=== PATIENT | male | born 1995 | race Caucasian/White ===

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

== ENCOUNTER 2017-01-26 13:20 | Emergency (ER) | payer OTHER ==
[~2017-01-26] VITALS: Ht 167.6 cm; Wt 64.4 kg
[~2017-01-26 13:20] MED LIST changes: +AZIT250T3 PO; -BENZ100 PO; +IBUP-232 PO; -MEDR4PAK3 PO; -ROBIACUDC PO; -ZITH250T PO
[2017-01-26 13:30] VITALS: BP 122/62; PULSE 130; RESP 18; TEMP 99.8; O2SAT 98
[2017-01-26] MEDS ORDERED: ACETAMINOPHEN 325 MG TAB PO ONE (14:00)
--- NOTE | 2017-01-26 14:40 | PD ---
HPI Chief Complaint: ENT Complaint Time Seen by Provider: 14:10 Travel History International Travel<30 days: No Contact w/Intl Traveler<30days: No Traveled to known affect area: No History of Present Illness HPI 21-year-old male presents to the emergency room for evaluation of sore throat, fever, and weakness for the past 2 days. Maximum temperature at home was 101.8 yesterday. Patient took Advil yesterday but nothing today. States sore throat is severe and it keeps worsening over time. He has had strep in the past and states this feels as bad as that did. He denies cough and congestion. States he feels dehydrated because he cannot drink because of a sore throat. Up-to-date on vaccinations. No chronic medical conditions or daily medications. PFSH Past Medical History Diminished Hearing: No Integumentary: Yes (ECZEMA, FOOD ALLERGIES) Immunizations Current: Yes Tetanus Vaccination: < 5 Years Influenza Vaccination: Yes Social History Alcohol Use: Yes (Occ.) Tobacco Use: No Substance Use: No Allergies-Medications (Allergen,Severity, Reaction): Coded Allergies: iodine (Unverified Allergy, Severe, anaphylaxis, 01/26/17) peanut (Unverified Allergy, Severe, "CARDIAC ARREST", 01/26/17) potassium iodide (Unverified Allergy, Severe, anaphylaxis, 01/26/17) povidone-iodine (Unverified Allergy, Severe, anaphylaxis, 01/26/17) shellfish derived (Unverified Allergy, Severe, "CARDIAC ARREST", 01/26/17) sodium iodide (Unverified Allergy, Severe, anaphylaxis, 01/26/17) sodium iodide (Unverified Allergy, Severe, anaphylaxis, 01/26/17) Sulfa (Sulfonamide Antibiotics) (Unverified Allergy, Mild, HIVES, 01/26/17) penicillin G (Unverified Allergy, Mild, 01/26/17) Reported Meds & Prescriptions Reported Meds & Active Scripts Active Review of Systems Except as stated in HPI: all other systems reviewed are Neg Physical Exam Narrative GENERAL: Well-nourished, well-developed male in no acute distress. Afebrile. Ambulatory. SKIN: Focused skin assessment warm/dry. HEAD: Normocephalic. EYES: No scleral icterus. No injection or drainage. NECK: Supple, trachea midline. No JVD or lymphadenopathy. ENT: Mucosa pink and moist. Extreme erythema without significant edema or exudates. No uvular edema. No uvular, palatal, or tonsillar deviation. Airway patent. Nasal turbinates appear normal without nasal blood, purulent drainage or septal hematoma. EARS: Bilateral pinnae and external canals appear within normal limits. Bilateral tympanic membranes without erythema, dullness or perforation. CARDIOVASCULAR: Regular rate and rhythm without murmurs, gallops, or rubs. RESPIRATORY: Breath sounds equal bilaterally. No accessory muscle use. No crackles, rales, wheezes, or rhonchi. Data Data Last Documented VS Vital Signs Date Time Temp Pulse Resp B/P (MAP) Pulse Ox O2 Delivery O2 Flow Rate FiO2 01/26/17 13:30 99.8 130 18 122/62 (82) 98 Orders Orders Group A Rapid Strep Screen (01/26/17 13:56) Acetaminophen (Tylenol) (01/26/17 14:00) Oral Rehydration (01/26/17 13:56) Influenzae A/B Antigen (01/26/17 13:56) MDM Medical Decision Making Medical Screen Exam Complete: Yes Emergency Medical Condition: Yes Medical Record Reviewed: Yes Differential Diagnosis Pharyngitis, strep throat, influenza, pneumonia Narrative Course 21-year-old male presents to the emergency room for evaluation of sore throat, fever, body aches, and weakness for the past 2 days. No cough or congestion. Maximum temperature was 101.8 yesterday. Temperature is 99.8 degrees today but patient has not taken anything. He is mildly tachycardic but after oral rehydration, his heart rate came down to 100. He is laughing, interacting appropriate, smiling. Does not appear toxic. Physical exam reveals extreme erythema of the pharynx without edema or exudates. Patient has associated halitosis. Rapid strep and influenza are negative. Patient will be treated empirically with antibiotics for streptococcal pharyngitis given history and physical exam. Rapid strep is likely poor sample. Discharged with amoxicillin and mouthwash and told to follow-up with a primary care physician or return for worsening symptoms. He understands and agrees to plan. Diagnosis Primary Impression: Pharyngitis Qualified Codes: J02.0 - Streptococcal pharyngitis Referrals: Primary Care Physician Additional Instructions: Rest and drink plenty of fluids. Magic mouthwash as directed, as needed for pain. Penicillin as directed, until gone. Take ibuprofen with food as directed, as needed for pain. Follow-up with a primary care physician. Return to the emergency room for worsening symptoms. Med/Other Pt SpecificInfo: Prescription(s) given Disposition: 01 DISCHARGE HOME Condition: Stable Mary Beth Waite Jan 26, 2017 14:40
[2017-01-26] MEDS ORDERED: CEPH-460 PO (14:43)
[2017-01-26] MEDS ORDERED: MAGICPED SWISH-SWAL (14:43)
[2017-01-26 14:44] VITALS: PULSE 98; RESP 16; O2SAT 98
== END 2017-01-26 14:50 | disposition home or self-care (01) ==
LOC: PHEFT 13:20
DX: J02.0 Streptococcal pharyngitis (principal); R50.9 Fever, unspecified; R53.1 Weakness; M79.1 Myalgia; Z87.2 Personal history of diseases of the skin and subcutaneous tissue
CPT/HCPCS: 87081; 87804; 87880; 99284

== ENCOUNTER 2017-04-24 09:00 | Emergency (ER) | payer OTHER ==
[~2017-04-24] VITALS: Ht 167.6 cm; Wt 62.7 kg
[~2017-04-24 09:00] MED LIST changes: -AZIT250T3 PO; +CEPH-460 PO; -IBUP-232 PO; +MAGICPED SWISH-SWAL
[2017-04-24 09:07] VITALS: BP 127/60; PULSE 123; RESP 16; TEMP 98.4; O2SAT 97
[2017-04-24] MEDS ORDERED: SODIUM CHLOR 0.9% 1000 ML INJ 1,000 ML IV SCH (11:09)
--- NOTE | 2017-04-24 11:12 | PD ---
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 Otherwise healthy, denies any abdominal pain denies any heavy episodes of exertion such as drills. States symptoms are gradually getting worse, he did have a flu shot this year. States he had temperature at home of 100.0 prior to arrival. Denies any urinary symptoms diarrhea constipation blood in the stool. PFSH Past Medical History Diminished Hearing: No Integumentary: Yes (ECZEMA, FOOD ALLERGIES) Immunizations Current: Yes ?: Not Past Surgical History Oral Surgery: Yes (wisdom teeth) Social History Alcohol Use: Yes (Occ.) Tobacco Use: No Substance Use: No Allergies-Medications (Allergen,Severity, Reaction): Coded Allergies: iodine (Unverified Allergy, Severe, anaphylaxis, 04/24/17) peanut (Unverified Allergy, Severe, "CARDIAC ARREST", 04/24/17) potassium iodide (Unverified Allergy, Severe, anaphylaxis, 04/24/17) povidone-iodine (Unverified Allergy, Severe, anaphylaxis, 04/24/17) shellfish derived (Unverified Allergy, Severe, "CARDIAC ARREST", 04/24/17) sodium iodide (Unverified Allergy, Severe, anaphylaxis, 04/24/17) sodium iodide (Unverified Allergy, Severe, anaphylaxis, 04/24/17) Sulfa (Sulfonamide Antibiotics) (Unverified Allergy, Mild, HIVES, 04/24/17) penicillin G (Unverified Allergy, Mild, 04/24/17) Reported Meds & Prescriptions Reported Meds & Active Scripts Active Review of Systems Except as stated in HPI: all other systems reviewed are Neg Physical Exam Narrative GENERAL: Well-developed well-nourished no obvious distress SKIN: Focused skin assessment warm/dry. No rash HEAD: Atraumatic. Normocephalic. EYES: Pupils equal and round. No scleral icterus. No injection or drainage. ENT: No nasal bleeding or discharge. Mucous membranes pink and moist. Oropharynx clear moist, TMs clear bilaterally NECK: Trachea midline. No JVD. CARDIOVASCULAR: Regular rhythm with minimal tachycardia. No murmur appreciated. 2+ bilateral equal pulses in all 4 extremity RESPIRATORY: No accessory muscle use. Clear to auscultation. Breath sounds equal bilaterally. GASTROINTESTINAL: Abdomen soft, non-tender, nondistended. Hepatic and splenic margins not palpable. MUSCULOSKELETAL: No obvious deformities. No clubbing. No cyanosis. No edema. NEUROLOGICAL: Awake and alert. No obvious cranial nerve deficits. Motor grossly within normal limits. Normal speech. PSYCHIATRIC: Appropriate mood and affect; insight and judgment normal. Data Data Last Documented VS Vital Signs Date Time Temp Pulse Resp B/P (MAP) Pulse Ox O2 Delivery O2 Flow Rate FiO2 04/24/17 11:55 98 04/24/17 09:07 98.4 123 16 127/60 (82) Orders Orders Complete Blood Count With Diff (04/24/17 11:09) Comprehensive Metabolic Panel (04/24/17 11:09) Urinalysis - C+S If Indicated (04/24/17 11:09) Iv Access Insert/Monitor (04/24/17 11:09) Ecg Monitoring (04/24/17 11:09) Oximetry (04/24/17 11:09) Ondansetron Inj (Zofran Inj) (04/24/17 11:15) Sodium Chlor 0.9% 1000 Ml Inj (Ns 1000 M (04/24/17 11:09) Sodium Chloride 0.9% Flush (Ns Flush) (04/24/17 11:15) Influenzae A/B Antigen (04/24/17 11:09) Chest, Pa & Lat (04/24/17 ) Ed Discharge Order (04/24/17 12:22) Labs Laboratory Tests Test 04/24/17 11:25 White Blood Count 12.9 TH/MM3 Red Blood Count 4.76 MIL/MM3 Hemoglobin 14.7 GM/DL Hematocrit 42.7 % Mean Corpuscular Volume 89.6 FL Mean Corpuscular Hemoglobin 30.8 PG Mean Corpuscular Hemoglobin Concent 34.4 % Red Cell Distribution Width 11.4 % Platelet Count 191 TH/MM3 Mean Platelet Volume 8.6 FL Neutrophils (%) (Auto) 86.2 % Lymphocytes (%) (Auto) 7.0 % Monocytes (%) (Auto) 6.5 % Eosinophils (%) (Auto) 0.1 % Basophils (%) (Auto) 0.2 % Neutrophils # (Auto) 11.2 TH/MM3 Lymphocytes # (Auto) 0.9 TH/MM3 Monocytes # (Auto) 0.8 TH/MM3 Eosinophils # (Auto) 0.0 TH/MM3 Basophils # (Auto) 0.0 TH/MM3 CBC Comment DIFF FINAL Differential Comment Urine Collection Type CLEAN CATCH Urine Color YELLOW Urine Turbidity CLEAR Urine pH 5.5 Urine Specific [place] 1.032 Urine Protein TRACE mg/dL Urine Glucose (UA) NEG mg/dL Urine Ketones 15 mg/dL Urine Occult Blood TRACE Urine Nitrite NEG Urine Bilirubin NEG Urine Leukocyte Esterase NEG Urine RBC INNUM /hpf Urine Squamous Epithelial Cells 0-5 /hpf Urine Mucus MOD /lpf Microscopic Urinalysis Comment CULT NOT INDICATED Urine Collection Time 11:25 Blood Urea Nitrogen 14 MG/DL Creatinine 1.10 MG/DL Random Glucose 88 MG/DL Total Protein 7.6 GM/DL Albumin 4.0 GM/DL Calcium Level 8.7 MG/DL Alkaline Phosphatase 54 U/L Aspartate Amino Transf (AST/SGOT) 14 U/L Alanine Aminotransferase (ALT/SGPT) 22 U/L Total Bilirubin 0.9 MG/DL Sodium Level 138 MEQ/L Potassium Level 3.6 MEQ/L Chloride Level 104 MEQ/L Carbon Dioxide Level 27.0 MEQ/L Anion Gap 7 MEQ/L Estimat Glomerular Filtration Rate 85 ML/MIN MDM Medical Decision Making Medical Screen Exam Complete: Yes Emergency Medical Condition: Yes Differential Diagnosis Rhabdomyolysis, dehydration, flu, viral illness, pneumonia Narrative Course Patient roomed emergency department, given fluids, basic labs are reassuring. Chest x-ray negative. Discussed with him likely diagnosis of viral illness, has an incidental finding of hematuria onset undetermined significance, nephritic syndrome is on the differential however kidney function is normal at this time I think he can follow up outpatient. Has not had any flank pain and I do not think a CT of his abdomen is of benefit at this time. Discussed to observe it and recommended a repeat dipstick in a week and/or follow up with urologist. He is verbalized understanding and agreement. Otherwise she is feeling better after fluids and requests discharge. He stable for discharge. Diagnosis Primary Impression: Flu-like symptoms Additional Impression: Hematuria Patient Instructions: General Instructions, Hematuria (ED), Upper Respiratory Infection (DC) Disposition: 01 DISCHARGE HOME Condition: Stable Ernst Kruse MD Apr 24, 2017 11:12
[2017-04-24] MEDS ORDERED: ONDANSETRON HCL 4 MG/2 ML VIAL IVP ONE (11:15)
[2017-04-24] MEDS ORDERED: SODIUM CHLORIDE 0.9% FLUSH 10 ML FLUSH IV FLUSH PRN (11:15)
[2017-04-24 11:48] LABS: AUTOMATED NEUTROPHIL # 11.2 TH/MM3 (1.8-7.7); BASOPHIL % 0.2 % (0.0-2.0); EOSINOPHIL % 0.1 % (0.0-4.0); HEMATOCRIT 42.7 % (39.0-51.0); LYMPHOCYTE # 0.9 TH/MM3 (1.0-4.8); MEAN CELL VOLUME 89.6 FL (80.0-100.0); MEAN CORPUSCULAR HEMOGLOBIN 30.8 PG (27.0-34.0); MEAN CORPUSCULAR HGB CONC 34.4 % (32.0-36.0); MONO % 6.5 % (0.0-8.0); NEUT % 86.2 % (16.0-70.0); PLATELET COUNT 191 TH/MM3 (150-450); RED BLOOD COUNT 4.76 MIL/MM3 (4.50-5.90); RED CELL DISTRIBUTION WIDTH 11.4 % (11.6-17.2); WHITE BLOOD COUNT 12.9 TH/MM3 (4.0-11.0)
--- NOTE | 2017-04-24 11:49 | RADRPT ---
EXAM DATE/TIME: 04/24/2017 11:30 [facility] COMPARISON: KNEE LEFT COMPLETE (4VWS), September 22, 2016, 19:42. INDICATIONS : Chest pain, cough, sore throat, body aches. MEDICAL HISTORY : None. SURGICAL HISTORY : None. ENCOUNTER: Initial ACUITY: 2 days PAIN SCORE: 5/10 LOCATION: Bilateral chest FINDINGS: PA and lateral views of the chest demonstrate the lungs to be symmetrically aerated without evidence of mass, infiltrate or effusion. The cardiomediastinal contours are unremarkable. Osseous structure s are intact. CONCLUSION: 1. No acute cardiopulmonary findings. Edilberto Sanchez MD on April 24, 2017 at 11:46 Board Certified Radiologist. This report was verified electronically.
[2017-04-24 11:53] LABS: BLOOD, URINE TRACE (NEG); GLUCOSE,URINE NEG (NEG); KETONE, URINE 15 mg/dL (NEG); NITRITE,URINE NEG (NEG); PH, URINE 5.5 (5.0-8.5)
[2017-04-24 11:54] LABS: HEMO FLAGS DIFF FINAL
[2017-04-24 11:55] VITALS: O2SAT 98
[2017-04-24 12:01] LABS: COMMENT (UR) CULT NOT INDICATED; CULTURE IF INDICATED CULT NOT INDICATED; METHOD OF COLLECTION CLEAN CATCH; MUCUS URINE MOD /lpf (OCC); RBC, URINE INNUM /hpf (0-3); SQUAMOUS EPITHELIAL CELL URINE 0-5 /hpf (0-5); URINE COLOR YELLOW (YELLW/STRAW)
[2017-04-24 12:06] LABS: CHLORIDE 104 MEQ/L (98-107); POTASSIUM 3.6 MEQ/L (3.5-5.1); SODIUM (NA) 138 MEQ/L (136-145)
[2017-04-24 12:10] LABS: ANION GAP 7 MEQ/L (5-15); BLOOD UREA NITROGEN 14 MG/DL (7-18)
[2017-04-24 12:13] LABS: ALT (GPT) 22 U/L (9-52); AST (GOT) 14 U/L (15-39); GLOMERULAR FILTRATION RATE 85 ML/MIN (>89)
[2017-04-24 12:14] LABS: TOTAL BILIRUBIN ADULT 0.9 MG/DL (0.2-1.0)
[2017-04-24 12:16] LABS: ALKALINE PHOSPHATASE 54 U/L (45-117)
== END 2017-04-24 12:49 | disposition home or self-care (01) ==
LOC: PHED 09:00
DX: M79.1 Myalgia (principal); R05 Cough; R07.0 Pain in throat; R11.10 Vomiting, unspecified; R50.9 Fever, unspecified; R31.9 Hematuria, unspecified; Z87.2 Personal history of diseases of the skin and subcutaneous tissue
CPT/HCPCS: 71020; 80053; 81001; 85025; 87804; 96361; 96374; 99284; J2405; J7030

== ENCOUNTER 2017-06-14 11:32 | Emergency (ER) | payer OTHER ==
[2017-06-14] MEDS ORDERED: SODIUM CHLORIDE 0.9% FLUSH 10 ML FLUSH IV FLUSH (12:30)
[2017-06-14 12:43] LABS: AUTOMATED NEUTROPHIL # 14.8 TH/MM3 (1.8-7.7); BASOPHIL # 0.2 TH/MM3 (0-0.2); BASOPHIL % 1.4 % (0.0-2.0); EOSINOPHIL # 0.2 TH/MM3 (0-0.4); EOSINOPHIL % 1.3 % (0.0-4.0); HEMATOCRIT 46.8 % (39.0-51.0); HEMOGLOBIN 15.5 GM/DL (13.0-17.0); LYMPH % 3.6 % (9.0-44.0); LYMPHOCYTE # 0.6 TH/MM3 (1.0-4.8); MEAN CELL VOLUME 89.6 FL (80.0-100.0); MEAN CORPUSCULAR HEMOGLOBIN 29.7 PG (27.0-34.0); MEAN CORPUSCULAR HGB CONC 33.1 % (32.0-36.0); MEAN PLATELET VOLUME 8.8 FL (7.0-11.0); MONO % 3.1 % (0.0-8.0); MONOCYTE # 0.5 TH/MM3 (0-0.9); NEUT % 90.6 % (16.0-70.0); PLATELET COUNT 221 TH/MM3 (150-450); RED BLOOD COUNT 5.22 MIL/MM3 (4.50-5.90); WHITE BLOOD COUNT 16.3 TH/MM3 (4.0-11.0)
[2017-06-14 12:46] LABS: HEMO FLAGS DIFF FINAL
[2017-06-14] MEDS: ONDANSETRON HCL 4 MG/2 ML VIAL IVP (12:46)
[2017-06-14] MEDS: SODIUM CHLOR 0.9% 1000 ML INJ 1,000 ML IV (12:47)
[2017-06-14 12:50] LABS: CHLORIDE 106 MEQ/L (98-107); POTASSIUM 3.8 MEQ/L (3.5-5.1); SODIUM (NA) 138 MEQ/L (136-145)
[2017-06-14 12:53] LABS: CALCIUM 9.1 MG/DL (8.5-10.1)
[2017-06-14 12:54] LABS: ALBUMIN 4.4 GM/DL (3.4-5.0); ANION GAP 7 MEQ/L (5-15); BICARBONATE 24.8 MEQ/L (21.0-32.0); BLOOD UREA NITROGEN 19 MG/DL (7-18); GLUCOSE,RANDOM 118 MG/DL (74-106); LIPASE 91 U/L (73-393)
[2017-06-14 12:57] LABS: ALT (GPT) 37 U/L (9-52); AST (GOT) 52 U/L (15-39); GLOMERULAR FILTRATION RATE 85 ML/MIN (>89)
[2017-06-14 12:58] LABS: TOTAL BILIRUBIN ADULT 1.2 MG/DL (0.2-1.0)
[2017-06-14 13:00] LABS: ALKALINE PHOSPHATASE 49 U/L (45-117)
[2017-06-14] MEDS: PROMETHAZINE INJ 25 MG/ML VIAL IM (16:02)
== END 2017-06-14 16:17 | disposition home or self-care (01) ==
LOC: PHED 11:32
DX: R11.2 Nausea with vomiting, unspecified (principal); Z88.0 Allergy status to penicillin; Z88.2 Allergy status to sulfonamides
CPT/HCPCS: 74176; 80053; 83690; 85025; 96361; 96372; 96374; 99284-25

== ENCOUNTER 2017-06-16 22:19 | Emergency (ER) | payer OTHER ==
[~2017-06-16] VITALS: Ht 170.2 cm; Wt 62.0 kg
[~2017-06-16 22:19] MED LIST changes: +AZIT500T2 PO; -CEPH-460 PO; -MAGICPED SWISH-SWAL; +ZOFR4TAB PO
[2017-06-16 22:21] VITALS: BP 126/70; PULSE 65; RESP 16; TEMP 98; O2SAT 100
== END 2017-06-16 23:00 | disposition left against medical advice (07) ==
LOC: NED 22:19
DX: R10.9 Unspecified abdominal pain (principal)
CPT/HCPCS: 99281